=== PATIENT | female | born 1980 | race Caucasian/White ===

== ENCOUNTER 2017-11-12 00:05 | Emergency (ER) | payer MEDICAID ==
[2017-11-12 00:19] VITALS: O2SAT 96
[2017-11-12] MEDS ORDERED: AZITHROMYCIN 250 MG TAB PO ONE (00:43)
[2017-11-12] MEDS ORDERED: DEXAMETHASONE 4 MG TAB PO ONE (00:43)
[2017-11-12] MEDS ORDERED: IBUPROFEN 800 MG TAB PO ONE (00:43)
--- NOTE | 2017-11-12 00:43 | EDPHY ---
H & P Stated Complaint: sore throat 24 hr HPI/ROS: HPI CHIEF COMPLAINT: Sore throat times 24 hr. HISTORY OF PRESENT ILLNESS: This patient very pleasant 36-year-old female, otherwise healthy does have a history of strep pharyngitis and GERD, she does not take any daily medications however she does have a penicillin allergy she presents emergency room sore throat times 24 hr. No fever. States that there is white exudate on her tonsillar bed. She denies chest pain shortness of breath or cough. Past Medical History: No significant medical history except for GERD Past Surgical History: No significant surgical history Social History: Denies daily use drugs or alcohol, does smoke tobacco. Family History: Noncontributory. ROS REVIEW OF SYSTEMS: A comprehensive 10 point review of systems is otherwise negative aside from elements mentioned in the history of present illness. Exam Constitutional appears well nontoxic triage nursing summary reviewed, vital signs reviewed, awake/alert. Eyes normal conjunctivae and sclera, EOMI, PERRLA. HENT posterior pharynx is erythematous, with exudate present, tonsillar bed 2 + equal, no asymmetrical swelling, moist mucus membranes, no epistaxis, neck supple/ no meningismus, no raccoon eyes. Respiratory clear to auscultation bilaterally, normal breath sounds, no respiratory distress, no wheezing. Cardiovascular rate normal, regular rhythm, no murmur, no edema, distal pulses normal. Gastrointestinal soft, non-tender, no rebound, no guarding, normal bowel sounds, no distension, no pulsatile mass. Genitourinary no CVA tenderness. Musculoskeletal no midline vertebral tenderness, full range of motion, no calf swelling, no tenderness of extremities, no meningismus, good pulses, neurovascularly intact. Skin pink, warm, & dry, no rash, skin atraumatic. Neurologic awake, alert and oriented x 3, AAOx3, moves all 4 extremities equally, motor intact, sensory intact, CN II-XII intact, normal cerebellar, normal vision, normal speech. Psychiatric normal mood/affect. Heme/Lymph/Immune no lymphadenopathy. Differential Diagnosis: Includes but is not limited to in a particular, viral pharyngitis, strep pharyngitis, mono Medical Decision Making: Plan for this patient rapid strep. Will give a dose of Decadron, ibuprofen and his throat she has a penicillin allergy most likely has strep pharyngitis. Return precautions discussed with the patient understands return emergency room she develops worsening pain, fever, vomiting questions or concerns. Source: Patient - Personal History LMP (Females 10-55): 8-14 Days Ago Current Tetanus/Diphtheria Vaccine: Yes Current Tetanus Diphtheria and Acellular Pertussis (TDAP): Yes - Medical/Surgical History Hx Asthma: No Hx Chronic Respiratory Disease: No Hx Diabetes: No Hx Cardiac Disease: No Hx Renal Disease: No Hx Cirrhosis: No Hx Alcoholism: No Hx HIV/AIDS: No Hx Splenectomy or Spleen Trauma: No Other PMH: adnoids. c section. elbow surgery - Social History Smoking Status: Current every day smoker Constitutional: Initial Vital Signs Temperature (C) 36.8 C 11/12/17 00:12 Heart Rate 106 H 11/12/17 00:12 Respiratory Rate 18 11/12/17 00:12 Blood Pressure 120/87 H 11/12/17 00:12 O2 Sat (%) 96 11/12/17 00:12 O2 Delivery Mode Room Air Allergies/Adverse Reactions: Penicillins Allergy (Verified 11/12/17 00:11) Home Medications: Medication Instructions Recorded AZITHROMYCIN [Z-PACK] 250 mg PO DAILY #6 tab 11/12/17 Dexamethasone [Decadron 4 MG (*)] 4 mg PO DAILY #3 tab 11/12/17 Ibuprofen [Motrin (*)] 800 mg PO Q6-8PRN #7 tab 11/12/17 Nexium 11/12/17 Departure - Departure Disposition: Home, Routine, Self-Care Clinical Impression: Acute pharyngitis Condition: Good Instructions: Strep Throat (ED) Additional Instructions: 1. Drink lots of fluids stay well-hydrated. 2. Return emergency room if you have worsening symptoms questions or concerns. 3. Antibiotics as prescribed. Referrals: [facility] [Other] - As per Instructions Prescriptions: AZITHROMYCIN [Z-PACK] 250 mg PO DAILY #6 tab Dexamethasone [Decadron 4 MG (*)] 4 mg PO DAILY #3 tab Ibuprofen [Motrin (*)] 800 mg PO Q6-8PRN #7 tab
[2017-11-12 02:11] VITALS: BP 133/74; PULSE 74; RESP 16; TEMP 97.9
== END 2017-11-12 02:11 | disposition home or self-care (01) ==
DX: J02.9 Acute pharyngitis, unspecified (principal); F17.200 Nicotine dependence, unspecified, uncomplicated